=== PATIENT | male | born 1955 | race Caucasian/White ===

== ENCOUNTER 2018-03-18 16:18 | Emergency (ER) | payer MEDICAID, MEDICARE ==
--- NOTE | 2018-03-18 16:34 | RADIOLOGY REPORT (SQ) ---
EXAM DESCRIPTION: CHEST SINGLE VIEW COMPLETED DATE/TIME: 03/18/2018 4:26 pm REASON FOR STUDY: stroke alert COMPARISON: None. NUMBER OF VIEWS: One view. TECHNIQUE: Single frontal radiographic view of the chest acquired. LIMITATIONS: None. FINDINGS: LUNGS AND PLEURA: Low lung volumes. No opacities, masses or pneumothorax. No pleural eff usion. MEDIASTINUM AND HILAR STRUCTURES: No masses. No contour abnormality. HEART AND VASCULAR STRUCTURES: Normal size. No evidence for failure. BONES: No acute findings. HARDWARE: None in the chest. OTHER: No other significant finding. IMPRESSION: LOW LUNG VOLUMES. NO SIGNIFICANT RADIOGRAPHIC FINDING IN THE CHEST. TECHNICAL DOCUMENTATION: JOB ID: [id number] [employer]- All Rights Reserved Reading location - IP/workstation name: [email or web address]
--- NOTE | 2018-03-18 16:36 | RADIOLOGY REPORT (SQ) ---
EXAM DESCRIPTION: CT HEAD WITHOUT COMPLETED DATE/TIME: 03/18/2018 4:28 pm REASON FOR STUDY: stroke alert COMPARISON: None. TECHNIQUE: Axial images acquired through the brain without intravenous contrast. Images reviewed wi th bone, brain and subdural windows. Additional sagittal and coronal reconstructions were generated. Images stored on PACS. All CT scanners at this facility use dose modulation, iterative reconstruction, and/or weight based d osing when appropriate to reduce radiation dose to as low as reasonably achievable (ALARA). [facility]: Dose Right [facility]: CareDose [facility]: Dose Right [facility]: Teradose 4D [facility]: [employer] RADIATION DOSE: mGy. LIMITATIONS: None. FINDINGS: VENTRICLES: Normal size and contour. CEREBRUM: No masses. No hemorrhage. No midline shift. No evidence for acute infarction. Mild small vessel disease is suggested. CEREBELLUM: No masses. No hemorrhage. No alteration of density. No evidence for acute infarction. EXTRAAXIAL SPACES: No fluid collections. No masses. ORBITS AND GLOBE: No intra- or extraconal masses. Normal contour of globe without masses. CALVARIUM: No fracture. PARANASAL SINUSES: No fluid or mucosal thickening. SOFT TISSUES: No mass or hematoma. OTHER: No other significant finding. IMPRESSION: No acute intracranial abnormality. Pertinent positive or negative findings of the imaging study reported as a CRITICAL EXAM to DR SHELLY Rangel at16:24 on 03/18/2018. Category of Critical Exam: Stroke alert EVIDENCE OF ACUTE STROKE: NO. COMMENT: Quality ID # [id number]: Final reports with documentation of one or more dose reduction techniques (e.g., Automated exposure control, adjustment of the mA and/or kV according to patient size, use of iterative reconstruction technique) TECHNICAL DOCUMENTATION: JOB ID: [id number] [employer]- All Rights Reserved Reading location - IP/workstation name: [email or web address]
[2018-03-18 16:44] LABS: ABSOLUTE EOSINOPHILS # (AUTO) 0.2 10^3/uL (0.0-0.6); ABSOLUTE LYMPHOCYTES (AUTO) 1.7 10^3/uL (0.5-4.7); ABSOLUTE MONOCYTES (AUTO) 0.5 10^3/uL (0.1-1.4); ABSOLUTE NEUT (AUTO) 3.4 10^3/uL (1.7-8.2); BASOPHILS % (AUTO) 0.4 % (0-2); EOSINOPHILS % (AUTO) 2.6 % (0-6); HEMATOCRIT 35.6 % (37.9-51.0); HEMOGLOBIN 12.3 g/dL (13.5-17.0); LYMPHOCYTES % (AUTO) 29.7 % (13-45); MEAN CORPUSCULAR HEMOGLOBIN 29.3 pg (27.0-33.4); MEAN CORPUSCULAR HGB CONC 34.4 g/dL (32.0-36.0); MEAN CORPUSCULAR VOLUME 85 fl (80-97); PLATELET COUNT 321 10^3/uL (150-450); RED BLOOD COUNT 4.19 10^6/uL (4.35-5.55); RED CELL DISTRIBUTION WIDTH 13.5 % (11.5-14.0); SEGMENTED NEUTROPHILS % (AUTO) 59.3 % (42-78); TOTAL CELLS COUNTED % (AUTO) 100 %; WHITE BLOOD COUNT 5.8 10^3/uL (4.0-10.5)
[2018-03-18 16:47] LABS: PROTHROMBIN TIME 13.7 SEC (11.4-15.4)
[2018-03-18 16:48] LABS: PARTIAL THROMBOPLASTIN TIME 30.8 SEC (23.5-35.8)
[2018-03-18] MEDS ORDERED: NICARDIPINE HCL RTU, ISO-OS 20 MG/200 ML RTUINJ IV PRN ×3 (17:00→23:15)
--- NOTE | 2018-03-18 17:00 | ER Document Report ---
ED Neuro Symptoms/Deficit - General Mode of Arrival: Ambulatory Information source: Patient Notes: Patient is a 62 year old male with a history of HTN presents to the emergency department complaining of right sided weakness and difficulty speaking onset today. Patient states he noticed around 1530 today he began to have difficulty speaking and right sided weakness and proceeded to call EMS. At bedside patient has dysarthia. Patient denies a personal or familial history of strokes or [place]. Patient mentions running out of his HTN medications approximately 1 week ago. TRAVEL OUTSIDE OF THE [place] IN LAST 30 DAYS: No <BLANCO ARCHER - Last Filed: 03/18/18 23:10> - General Mode of Arrival: Ambulatory Information source: Emergency Med Personnel <FERNANDO AUGUST - Last Filed: 03/18/18 23:12> - General Chief Complaint: Weakness Stated Complaint: WEAKNESS Time Seen by Provider: 03/18/18 16:30 - Related Data Allergies/Adverse Reactions: No Known Allergies Allergy (Unverified 03/18/18 17:03) Past Medical History - General Information source: Patient - Social History Smoking Status: Never Smoker Chew tobacco use (# tins/day): No Drug Abuse: None Family History: Reviewed & Not Pertinent Patient has suicidal ideation: No Patient has homicidal ideation: No - Past Medical History Cardiac Medical History: Reports: Hx Hypertension <BLANCO ARCHER - Last Filed: 03/18/18 23:10> Review of Systems - Review of Systems Constitutional: No symptoms reported EENT: No symptoms reported Cardiovascular: No symptoms reported Respiratory: No symptoms reported Gastrointestinal: No symptoms reported Genitourinary: No symptoms reported Male Genitourinary: No symptoms reported Musculoskeletal: See HPI Skin: No symptoms reported Hematologic/Lymphatic: No symptoms reported Neurological/Psychological: See HPI, Weakness -: Yes All other systems reviewed and negative <BLANCO ARCHER - Last Filed: 03/18/18 23:10> Physical Exam - Notes Notes: GENERAL: Alert, difficulty speaking. No acute distress. HEAD: Normocephalic, slight right sided facial droop, slight movement of the eyebrows bilaterally. EYES: Pupils equal, round, and reactive to light. Extraocular movements intact. ENT: Oral mucosa moist, tongue midline. NECK: Full range of motion. Supple. Trachea midline. LUNGS: Clear to auscultation bilaterally, no wheezes, rales, or rhonchi. No respiratory distress. HEART: Regular rate and rhythm. No murmurs, gallops, or rubs. ABDOMEN: Soft, non-tender. Non-distended. Bowel sounds present in all 4 quadrants. EXTREMITIES: Moves all 4 extremities spontaneously, right sided weakness see NIH. No edema, radial and dorsalis pedis pulses 2/4 bilaterally. No cyanosis. NEUROLOGICAL: Alert. Right sided facial droop. Severe aphaisa. See NIH scale. Biceps and patellar DTRs 2+ bilaterally. PSYCH: Normal affect, normal mood. SKIN: Warm, dry, normal turgor. No rashes or lesions noted. <BLANCO ARCHER - Last Filed: 03/18/18 23:10> - Vital signs Vitals: Pulse Resp BP Pulse Ox 78 15 198/102 H 96 03/18/18 16:20 03/18/18 16:20 03/18/18 16:20 03/18/18 16:20 <FERNANDO AUGUST - Last Filed: 03/18/18 23:12> Course - Re-evaluation Re-evalutation: 03/18/18 22:56 Dr. Hayes at [facility] accepts patient for transfer ER to ER. - Laboratory Result Diagrams: 03/18/18 15:50 03/18/18 15:50 Laboratory results interpreted by me: 03/18/18 03/18/18 15:50 16:27 RBC 4.19 L Hgb 12.3 L Hct 35.6 L POC Glucose 133 H <BLANCO ARCHER - Last Filed: 03/18/18 23:10> - Re-evaluation Re-evalutation: 03/18/18 18:58 CBC shows mild anemia with hemoglobin 12.3, coags unremarkable, CMP shows slightly elevated BUN at 21 otherwise unremarkable, troponin detectable at 0.017 but unremarkable, CT scan of the head ruled out any evidence of intracranial hemorrhage, chest x-ray was unremarkable patient had an NIH stroke scale of 12, he presented within 3 hours of symptom onset. Only relative contraindication is blood pressure that has been between 182 systolic and 190 systolic. I did start the patient on a Cardene drip, blood pressure was less than 185 systolic over 110 diastolic when the TPA was started. I did discuss the risks and benefits of TPA with the patient including approximately a 6-8% risk of intracranial hemorrhage in which could lead to or increasing disability. Patient had very few intelligible words however when asked specifically if he wanted TPA he said yes. Patient is now finished his TPA infusion, he has been rechecked approximately 5 minutes ago and has had slight improvement in his right-sided facial droop, significant improvement in his ability to lift his right leg, mildly he has slightly worsening right arm weakness and his speech has improved. When I asked the patient how he was feeling he said about the same may be one-point improvement. This is remarkable considering I was completely unable to understand any words that he said prior to the TPA with exception of the word yes. Patient will remain on a Cardene drip titrated to keep his blood pressure in the 140s-150s and will be discussed with the hospitalist for admission. 03/18/18 20:41 Patient was discussed with Dr. Andre who accepted the patient. Patient has now developed a headache and has vomited twice. Patient will be sent for a stat CT of the head to look for a bleed. 03/18/18 23:[address] scan of the head does not show any bleeding, it does show bilateral edema in the parietal and initial frontal lobes, findings are also suggestive of a thrombus in the distal right vertebral artery and basilar artery. Patient' s exam is again worsening, patient is no longer able to answer my questions, a aphasia has returned. He still has worsened weakness in his right upper extremity compared to before the TPA. After discussion with the patient I did call [facility] and spoke with Dr. Hayes who accepts the patient as an ER to ER transfer. States that he does not want me to repeat the CT angiogram at this time, he will just take the patient straight to the angiography lab. Patient continues to be on Cardene drip at 2.5. - Vital Signs Vital signs: Temp Pulse Resp BP Pulse Ox 97.9 F 95 17 141/88 H 96 03/18/18 18:39 03/18/18 18:30 03/18/18 18:46 03/18/18 18:46 03/18/18 18:46 - Laboratory Result Diagrams: 03/18/18 15:50 03/18/18 15:50 Laboratory results interpreted by me: 03/18/18 03/18/18 03/18/18 15:50 15:50 16:27 RBC 4.19 L Hgb 12.3 L Hct 35.6 L Chloride 112 H BUN 21 H Glucose 117 H POC Glucose 133 H Direct Bilirubin 0.5 H Creatine Kinase 49 L - EKG Interpretation by Me Additional EKG results interpreted by me: 03/18/18 23:07 EKG shows sinus rhythm at a rate of 67, slight left axis deviation, normal intervals, no ST segment elevations, slight ST segment depressions in lead II, V5 and V6, aVF. T wave inversions in lead III. Per my interpretation. <FERNANDO AUGUST - Last Filed: 03/18/18 23:12> Critical Care Note - Critical Care Note Total time excluding time spent on procedures (mins): 80 <FERNANDO AUGUST - Last Filed: 03/18/18 23:12> ED Alteplase Inc/Exc Criteria - Inclusion Criteria: 1: Patient presented to ED within 3 hours of acute ischemic stroke symptom onset ? -: Yes 2: Did baseline CT exclude intracranial hemorrhage and/or other risk factors? -: Yes 3: Is the age of the patient 18 years of age or greater? -: Yes : If any of the above questions are answered "NO" then stop, patient is not a candidate for Alteplase, : If all of the above questions are answered "YES" then continue with Exclusion Criteria. - Exclusion Criteria: 1: Is there evidence of intracranial hemorrhage on baseline CT? -: No 2: Is there suspicion of subarachnoid hemorrhage (even if CT negative)? -: No 3: Is there a history of serious head trauma, recent previous stroke or OH within 3 months? -: No 4: Does the patient have a clinical presentation consistent with OH or post-OH pericarditis? -: No 5: Is there history of intracranial hemorrhage? -: No 6: On repeated measurement is Systolic BP greater than 185mmHg or Diastolic BP greater that 110 mmHg and is aggressive treatment needed to reduce blood pressure to these limits (e.g. constant infusion of an anti-hypertensive)? -: No 7: Did the patient awake with stroke symptoms? -: No 8: Has the patient had a lumbar puncture or an arterial puncture at a non- compressile site within 7 days? -: No 9: With in the last 14 days did the patient have surgery or major trauma? -: No 10: Is the patient or less than 2 weeks? -: No 11: Was there any active bleeding or acute trauma? -: No 12: Does the patient have intracranial neoplasm, arteriovenous malformation or aneurysm? -: No 13: Does the patient have abnormal glucose (less than 50 or greater than 400mg/ dl)? Record glucose in Comment. -: No 14: Patient has rapidly improving symptoms at the time Alteplase is to be Administered. -: No 15: Does the patient have any risks for bleeding, including but not limited to: a.: Current use of Coumadin with PT greater than 15 seconds or INR greater than 1.7. b.: Current use of Pradaxa (Dabigatran). c.: Heparin administereed within the past 48 hours and PTT elevated. d.: Platelet count less than 100,000/mm. e.: Major surgery or serious trauma within 14 days. f.: Gastrointestinal or gynecological urinary bleeding within 14 days. g.: Myocardial Infarction (OH) within 3 months. -: No : If the answer to any of the above questions is "YES" then stop, the patient is not a candidate for Alteplase. : If the answer to all of the above questions is "NO" then the patient may be eligible for the Administration of Alteplase. : If the patient is noted to have seizure activity at onset of Stroke symptoms; Consult Neurologist for further evaluation. - The patient is: -: Included and is eligible to receive Alteplase. *Initiate bed placement at higher level of care* --: Yes Reviewed risks & benefits of thrombolytic therapy: I have reviewed the risks and benefits of thrombolytic therapy with the patient and/or his/her family. Yes -: Excluded and not eligible to receive Alteplase for the above exclusions. --: No -: Excluded and not eligible to receive Alteplase for other reasons (specify in comments): --: No - Diagnosis of TIA: -: Patient presented with transient symptoms that are now resolved and no other neurologic findings are currently present. List symptoms in comments. -: No -: Patient is NOT a candidate for tPA. -: No -: ____(put name in comment) has been consulted for admission and continued evaluation of risk factor assessment. <BLANCO ARCHER - Last Filed: 03/18/18 23:10> - Date/Time patient last known well: Date/Time: 03/18/2018 15:30 - Date/Time patient arrived in ED: _: [id number] 16:18 <FERNANDO AUGUST - Last Filed: 03/18/18 23:12> ED NIH Stroke Scale - NIH Stroke Scale *: 1. NIH scale should be completed with appropriate accompanying assessment tools. *: 2. The NIH should reflect what the patient is capable of doing and should not be coached by the clinician. 1a. Level of Consciousness: 0=Alert;keenly responsive -: 1=Drowsy -: 2=Obtunded -: 3=Coma/unresponsive or reflex to noxious stimuli. 1a. Responses: 0 1b. Orientation Questions: a. What month is it? -: b. How old are you? -: 0=Answers both questions correctly. -: 1=Answers one question correctly or patient is intubated or has orotracheal trauma. -: 2=Answers neither question correctly. 1b. Responses: 2 1c. Response to commands: a. Open and close eyes? -: b. Placement Officer and release hand? -: Credit is given despite weakness. Demonstration of task is permitted. Substitute command if hands cannot be used. -: 0=Performs both tasks correctly -: 1=Performs one task correctly -: 2=Performs neither task correctly 1c. Responses: 0 2. Gaze: Establish eye contact and instruct patient to "Follow my finger" -: 0=Normal -: 1=Partial gaze palsy. Gaze is abnormal in one or both eyes, but where forced deviation or total gaze paresis is not present. -: 2=Forced deviation or total gaze paresis. 2. Responses: 0 3. Visual Pearson: Sees fingers in all four quadrants. -: 0=No visual loss. -: 1=Partial hemianopsia. -: 2=Complete hemianopsia. -: 3=Bilateral hemianopsia (including Cortical blindness) 3. Responses: 0 4. Facial Movement: Instruct patient to: -: a. Show me your teeth -: b. Raise your eyebrows -: c. Close your eyes -: d. Smile -: 0=Normal symmetrical movement -: 1=Minor paralysis (flattened nasolabial fold, asymmetry on smiling). -: 2=Partial paralysis (total or near total paralysis of lower face). -: 3=Complete paralysis of upper and lower face 4. Responses: 2 5. Motor functions (left arm): Alternate sides and extend each arm with palms down (90 degrees if sitting or 45 degrees for supine). -: 0=No drift;limb holds for full 10 seconds. -: 1=Drift; limb holds but drifts down before full 10 seconds, but does not hit bed. -: 2=Some effort against gravity; limb cannot get to or maintain position. -: 3=No effort against gravity; limb falls. -: 4=No movement. -: UN=Amputation, joint fusion, explain in comments. 5. Responses (left arm): 0 5. Motor Functions (right arm): Alternate sides and extend each arm with palms down (90 degrees if sitting or 45 degrees for supine). -: 0=No drift;limb holds for full 10 seconds. -: 1=Drift; limb holds but drifts down before full 10 seconds, but does not hit bed. -: 2=Some effort against gravity; limb cannot get to or maintain position. -: 3=No effort against gravity; limb falls. -: 4=No movement. -: UN=Amputation, joint fusion, explain in comments. 5. Responses (right arm): 1 6. Motor Functions (left leg): With patient lying supine, alternate sides and extend each leg (30 degrees always while supine). -: 0=No drift, leg holds position for full 5 seconds -: 1=Drift; leg falls before full 5 seconds but does not hit bed. -: 2=Some effort against gravity, leg falls to bed but some effort against gravity. -: 3=No effort against gravity, leg falls to bed immediately. -: 4=No movement. -: UN=Amputation, joint fusion; explain in comments. 6. Responses (left leg): 0 6. Motor Functions (right leg): With patient lying supine, alternate sides and extend each leg (30 degrees always while supine). -: 0=No drift, leg holds position for full 5 seconds -: 1=Drift; leg falls before full 5 seconds but does not hit bed. -: 2=Some effort against gravity, leg falls to bed but some effort against gravity. -: 3=No effort against gravity, leg falls to bed immediately. -: 4=No movement. -: UN=Amputation, joint fusion; explain in comments. 6. Responses (right leg): 1 7. Limb Ataxia: With eyes open instruct patient to: -: a. "Touch your finger to your nose". -: b. "Touch your heel to your arndt" -: 0=Absent -: 1=Present in one limb. -: 2=Present in two limbs. -: UN=Amputation or joint fusion; explain in comments. 7. Responses: 1 7. If ataxia present choose as appropriate: Right arm 8. Sensory: Test sensation using pinprick or noxious stimuli. Test as many body parts as possible. -: 0=Normal;no sensory loss -: 1=Mile to moderate sensory loss (patient feels pin prick but is less sharp on affected side). -: 2=Severe or total sensory loss. 8. Responses: 1 9. Best Language: Instruct patient to: -: a. "Describe what you see in this picture." -: b. "Name the items in this picture." -: c. "Read these sentences." -: 0=No aphasia, normal -: 1=Mild to moderate aphasia. -: 2=Severe aphasia -: 3=Mute, global aphasia, no usable speech or auditory comprehension. 9. Responses: 2 10. Articulation, Dysarthia: Instruct patient to: -: "Read these words" or "Repeat these words" -: 0=Normal -: 1=Mild to moderate; patient may slur some words but can be understood without difficulty. -: 2=Severe; patients speech so slurred as to be unintelligible in the absence of dysphasia. -: UN=Intubated or other physical barrier, explain in comments. 10. Responses: 2 11. Extinction or inattention: 0=No abnormality -: 1= Visual, tactile, auditory, spatial, or personal inattention or extinction to bilateral simulation in one or the sensory modalities. -: 2=Profound gareth-inattention or gareth-inattention to more than one modality; does not recognize own hand. 11. Responses: 0 Total Score: 12 <BLANCO ARCHER - Last Filed: 03/18/18 23:10> Discharge <BLANCO ARCHER - Last Filed: 03/18/18 23:10> - Discharge Scribe Attestation: 03/18/18 23:12 I personally performed the services described in the documentation, reviewed and edited the documentation which was dictated to the scribe in my presence, and it accurately records my words and actions. <FERNANDO AUGUST - Last Filed: 03/18/18 23:12> - Discharge Clinical Impression: Acute CVA (cerebrovascular accident) Condition: Critical Disposition: [facility] Scribe Documentation - Scribe Written by Scribe:: Félix Velásquez, 03/18/2018 17:12 acting as scribe for :: Shell <BLANCO ARCHER - Last Filed: 03/18/18 23:10>
[2018-03-18 17:03] LABS: ALANINE AMINOTRANSFERASE 25 U/L (21-72); ALBUMIN 4.1 g/dL (3.5-5.0); ALKALINE PHOSPHATASE 91 U/L (38-126); ANION GAP 10 (5-19); ASPARTATE AMINO TRANSFERASE 27 U/L (17-59); BILIRUBIN,DIRECT 0.5 mg/dL (0.0-0.4); BILIRUBIN,TOTAL 0.8 mg/dL (0.2-1.3); BLOOD UREA NITROGEN 21 mg/dL (7-20); CALCIUM 9.3 mg/dL (8.4-10.2); CARBON DIOXIDE 22 mmol/L (22-30); CHLORIDE 112 mmol/L (98-107); CREATINE KINASE 49 U/L (55-170); GLUCOSE 117 mg/dL (75-110); POTASSIUM 4.4 mmol/L (3.6-5.0); SODIUM 143.8 mmol/L (137-145); TOTAL PROTEIN 7.4 g/dL (6.3-8.2)
[2018-03-18] MEDS ORDERED: ALTEPLASE INJ 100 MG VIAL IV ONE (17:03)
[2018-03-18] MEDS ORDERED: NICARDIPINE HCL RTU, ISO-OS 20 MG/200 ML RTUINJ IV ONE ×2 (17:11→22:50)
[2018-03-18 17:14] LABS: CREATINE KINASE MB 1.36 ng/mL (<4.55); TROPONIN I 0.017 ng/mL
--- NOTE | 2018-03-18 18:05 | RADIOLOGY REPORT (SQ) ---
EXAM DESCRIPTION: CTA HEAD; CTA NECK COMPLETED DATE/TIME: 03/18/2018 5:33 pm REASON FOR STUDY: stroke, look for large vessel occlusion COMPARISON: None. TECHNIQUE: Post IV contrast scanning, thin section axial imaging through the head and neck to evalua te the arterial structures. Source and MIP images are saved and reviewed on PACS. Advanced 3D imaging as volume-rendering, MIPs, SSD performed? yes All CT scanners at this facility use dose modulation, iterative reconstruction, and/or weight based d osing when appropriate to reduce radiation dose to as low as reasonably achievable (ALARA). [facility]: Dose Right [facility]: CareDose [facility]: Dose Right [facility]: Teradose 4D [facility]: [employer] CONTRAST TYPE AND DOSE: contrast/concentration: Isovue 350.00 mg/ml; Total Contrast Delivered: 70.0 ml; Total Saline Delivered: 65.0 ml 100 mL Isovue 370- low osmolar. RENAL FUNCTION: GFR > 60. LIMITATIONS: None. FINDINGS: [place]: The anterior, middle, posterior cerebral arteries are all patent. No ev idence of aneurysm or focal stenosis. NECK: The carotid and vertebral arteries are patent as is the basilar artery. No aneurysm. BRAIN: No gross enhancing lesions as visualized. BONES: Intact as visualized. SINUSES: No fluid or mucosal thickening. OTHER: No other significant finding. IMPRESSION: NO CTA EVIDENCE OF STENOSIS OR ANEURYSM. TECHNICAL DOCUMENTATION: JOB ID: [id number] Quality ID # [id number]: Final reports with documentation of one or more dose reduction techniques (e.g., Au tomated exposure control, adjustment of the mA and/or kV according to patient size, use of iterative reconstruction technique) 2010 [employer]- All Rights Reserved Reading location - IP/workstation name: [email or web address]
--- NOTE | 2018-03-18 18:05 | RADIOLOGY REPORT (SQ) ---
EXAM DESCRIPTION: CTA HEAD; CTA NECK COMPLETED DATE/TIME: 03/18/2018 5:33 pm REASON FOR STUDY: stroke, look for large vessel occlusion COMPARISON: None. TECHNIQUE: Post IV contrast scanning, thin section axial imaging through the head and neck to evalua te the arterial structures. Source and MIP images are saved and reviewed on PACS. Advanced 3D imaging as volume-rendering, MIPs, SSD performed? yes All CT scanners at this facility use dose modulation, iterative reconstruction, and/or weight based d osing when appropriate to reduce radiation dose to as low as reasonably achievable (ALARA). [facility]: Dose Right [facility]: CareDose [facility]: Dose Right [facility]: Teradose 4D [facility]: [employer] CONTRAST TYPE AND DOSE: contrast/concentration: Isovue 350.00 mg/ml; Total Contrast Delivered: 70.0 ml; Total Saline Delivered: 65.0 ml 100 mL Isovue 370- low osmolar. RENAL FUNCTION: GFR > 60. LIMITATIONS: None. FINDINGS: [place]: The anterior, middle, posterior cerebral arteries are all patent. No ev idence of aneurysm or focal stenosis. NECK: The carotid and vertebral arteries are patent as is the basilar artery. No aneurysm. BRAIN: No gross enhancing lesions as visualized. BONES: Intact as visualized. SINUSES: No fluid or mucosal thickening. OTHER: No other significant finding. IMPRESSION: NO CTA EVIDENCE OF STENOSIS OR ANEURYSM. TECHNICAL DOCUMENTATION: JOB ID: [id number] [place]-72 Quality ID # [id number]: Final reports with documentation of one or more dose reduction techniques (e.g., Au tomated exposure control, adjustment of the mA and/or kV according to patient size, use of iterative reconstruction technique) 2010 [employer]- All Rights Reserved Reading location - IP/workstation name: [email or web address]
[2018-03-18] MEDS ORDERED: DOCUSATE SODIUM 100 MG CAPSULE PO PRN (20:08)
[2018-03-18] MEDS ORDERED: ACETAMINOPHEN 325 MG TABLET PO PRN (20:08)
--- NOTE | 2018-03-18 21:06 | EKG REPORT ---
SEVERITY:- ABNORMAL ECG - SINUS RHYTHM NONSPECIFIC REPOL ABNORMALITY, LATERAL LEADS : Confirmed by: Preeti Betts MD 18-Mar-2018 21:06:26
--- NOTE | 2018-03-18 21:48 | RADIOLOGY REPORT (SQ) ---
EXAM DESCRIPTION: CT HEAD WITHOUT IV CONTRAST COMPLETED DATE/TME: 03/18/2018 20:10 CLINICAL HISTORY: 62 years, Male, 24 hrs post tPA administration (+/-6 hrs) COMPARISON: None. EXAM DESCRIPTION: CLINICAL HISTORY: 24 hrs post tPA administration (+/-6 hrs) COMPARISON: 03/18/2018 at 1614 hours TECHNIQUE: Contiguous axial CT images of the head were obtained. Coronal and sagittal reconstructions were created from the axial data. This exam was performed according to our departmental dose-optimization program, which includes automated exposure control, adjustment of the mA and/or kV according to patient size and/or use of iterative reconstruction technique. FINDINGS: There is poorly defined decreased attenuation involving both parietal lobes and the posterior aspects of both frontal lobes, with effacement of peripheral sulci in these regions. Garcia and white matter differentiation is poorly defined. Apparent mildly increased attenuation in the right vertebral artery and basilar artery is more pronounced than on the prior exam and intraluminal thrombus is possible despite recent TPA administration. Please note that noncontrast CT is not specific for intraluminal thrombus. There is no evidence of acute hemorrhage. No other significant interval change. IMPRESSION: Findings are concerning for evolving edema likely on the basis of ischemia involving the parietal and frontal lobes bilaterally. Findings are also suggestive of thrombus in the distal right vertebral artery and basilar artery. I discussed these findings with Dr. Andre at 2040 hours central time on 03/18/2018.
[2018-03-18] MEDS ORDERED: ATORVASTATIN CALCIUM 80 MG TABLET PO SCH (22:00)
[2018-03-18] MEDS ORDERED: HEPARIN SOD (PORCINE) 5,000 UNIT/ML 1 ML SYRINGE SUBCUT SCH (22:00)
[2018-03-18] MEDS ORDERED: ONDANSETRON HCL INJ/PF 4 MG/2 ML SDV IV ONE (22:46)
[2018-03-18] MEDS ORDERED: ONDANSETRON HCL INJ/PF 4 MG/2 ML SDV ONE (22:50)
[2018-03-18 23:19] VITALS: BP 133/77
[2018-03-19 00:04] LABS: CREATINE KINASE MB 1.2 ng/mL (<4.55); TROPONIN I 0.046 ng/mL
== END 2018-03-18 23:30 | disposition short-term general hospital (02) ==
LOC: ER 16:18 → UNDOADMIN 20:23 → EH 20:23 → ER 23:30
DX: I63.9 Cerebral infarction, unspecified (principal); R47.01 Aphasia; G81.91 Hemiplegia, unspecified affecting right dominant side; R29.712 NIHSS score 12; I10 Essential (primary) hypertension; T50.906A Underdosing of unspecified drugs, medicaments and biological substances, initial encounter; Z91.128 Patient's intentional underdosing of medication regimen for other reason; Z91.14 Patient's other noncompliance with medication regimen; D64.9 Anemia, unspecified; R51 Headache; R11.10 Vomiting, unspecified
CPT/HCPCS: 93005; 99285; 96366; 37195; 36415; 82553; 82962; 82550; 85025; 85610; 85730; 80053; 84484; 71045; 70450; 70496; 70498; 93010; J2997; J2405; J3490